=== PATIENT | female | born 1930 | race Caucasian/White ===

== ENCOUNTER → 2017-09-08 | Outpatient (CLI) | payer OTHER ==
[~2017-09-08] VITALS: Ht 154.9 cm; Wt 61.7 kg
[~2017-09-08] MED LIST: FISH OIL 1,001000 M2 PO; LEVOTHYROXINE500 MCG PO; MAGOX 400400 MG PO; PROBIOTIC1 EAC1 PO; XANAX 0.25 MG0.25 MG PO
[2017-09-08 09:56] VITALS: BP 158/80
[2017-09-08 12:19] LABS: ALBUMIN 4.3 g/dL (3.4-5.0); ANION GAP 8 mmol/L (7-16); BUN 13 mg/dL (7-18); CALCIUM 9.4 mg/dL (8.5-10.1); CHLORIDE 93 mmol/L (98-107); CHOLESTEROL 273 mg/dL (<200); CO2 27 mmol/L (21-32); CREATININE 0.6 mg/dL (0.6-1.0); GLUCOSE 101 mg/dL (74-106); HDL CHOLESTEROL 68 mg/dL (>40); LDL CHOLESTEROL 181 mg/dL (<100); MAGNESIUM 1.9 mg/dL (1.8-2.4); POTASSIUM 4.6 mmol/L (3.5-5.1); SGOT 13 U/L (15-37); SGPT 18 U/L (30-65); SODIUM 128 mmol/L (136-145); TOTAL BILIRUBIN 0.4 mg/dL (<0.1-1.0); TOTAL PROTEIN 7.7 g/dL (6.4-8.2); TRIGLYCERIDE 121 mg/dL (<150); VLDL 24 mg/dL (<40)
[2017-09-08 12:44] LABS: TSH 0.109 uIU/mL (0.358-3.740)
[2017-09-08 22:09] LABS: 25-HYDROXY TOTAL 28.1 ng/mL (30.0-100.0)
== END ==
LOC: SEN 09:22
PROVIDERS: Registered Nurse
DX: I10 Essential (primary) hypertension (principal); F41.9 Anxiety disorder, unspecified; F32.9 Major depressive disorder, single episode, unspecified; E03.9 Hypothyroidism, unspecified

== ENCOUNTER → 2017-09-16 | Outpatient (CLI) | payer OTHER ==
[~2017-09-16] VITALS: Ht 154.9 cm; Wt 61.7 kg
[2017-09-16 10:19] VITALS: BP 157/103
== END ==
LOC: SEN 09:31
DX: R53.83 Other fatigue (principal)